=== PATIENT | male | born 1945 | race Caucasian/White ===

== ENCOUNTER → 2020-02-20 10:05 | Outpatient (BNVA) | payer OTHER, SELFPAY | PROVIDERS: Family Provider Family Medicine; PCP Family Medicine; Referring Provider Dermatology; Visit Provider Dermatology | DX: D48.9 Neoplasm of uncertain behavior, unspecified (principal); Z85.820 Personal history of malignant melanoma of skin; Z12.83 Encounter for screening for malignant neoplasm of skin; L21.9 Seborrheic dermatitis, unspecified; L57.0 Actinic keratosis; L91.8 Other hypertrophic disorders of the skin; L82.1 Other seborrheic keratosis | CPT/HCPCS: 11102; 17000; 17003; 88304; 88305; 99203; 99204 ==

== ENCOUNTER → 2020-03-20 09:59 | Outpatient (BNVA) | payer OTHER, SELFPAY | PROVIDERS: Family Provider Family Medicine; PCP Family Medicine; Visit Provider Dermatology | DX: C44.91 Basal cell carcinoma of skin, unspecified (principal); D48.9 Neoplasm of uncertain behavior, unspecified; C44.41 Basal cell carcinoma of skin of scalp and neck | CPT/HCPCS: 17271; 88304 ==